=== PATIENT | female | born 1955 | race African-American/Black ===

== ENCOUNTER 2017-05-19 16:54 | Outpatient (CLI) | payer BC | END 2017-05-19 16:55 | disposition home or self-care (01) | LOC: BICMAMMO 16:54 | PROVIDERS: ATTEND Internal Medicine | DX: Z12.31 Encounter for screening mammogram for malignant neoplasm of breast (principal) | CPT/HCPCS: 77063; 77067 ==

== ENCOUNTER 2017-10-14 19:30 | Outpatient (CLI) | payer BC | END 2017-10-14 19:31 | disposition home or self-care (01) | LOC: SLEEPLAB 19:30 | PROVIDERS: ATTEND Family Medicine | DX: G47.33 Obstructive sleep apnea (adult) (pediatric) (principal); R53.83 Other fatigue; E66.9 Obesity, unspecified; G47.00 Insomnia, unspecified; F32.9 Major depressive disorder, single episode, unspecified; E11.9 Type 2 diabetes mellitus without complications; I10 Essential (primary) hypertension | CPT/HCPCS: 95811 ==

== ENCOUNTER 2017-10-26 16:14 | Outpatient (CLI) | payer BC ==
--- NOTE | 2017-10-26 13:16 | RAD ---
TWO VIEWS OF THE CHEST: COMPARISON: None. HISTORY: Dyspnea. FINDINGS: Two views of the chest show normal sized cardiomediastinal silhouette. There is no evidence of consol idation, mass, or pleural effusion. Degenerative changes are seen in the spine. IMPRESSION: No evidence of acute cardiopulmonary disease. POS: [facility]
== END 2017-10-26 16:15 | disposition home or self-care (01) ==
LOC: RAD 16:14
PROVIDERS: ATTEND Internal Medicine Pulmonary Disease
DX: R06.00 Dyspnea, unspecified (principal)
CPT/HCPCS: 71046

== ENCOUNTER 2017-11-03 20:30 | Outpatient (CLI) | payer BC | END 2017-11-03 20:31 | disposition home or self-care (01) | LOC: SLEEPLAB 20:30 | PROVIDERS: ATTEND Family Medicine | DX: G47.33 Obstructive sleep apnea (adult) (pediatric) (principal); R53.83 Other fatigue; E66.9 Obesity, unspecified; F32.9 Major depressive disorder, single episode, unspecified; G47.00 Insomnia, unspecified; I10 Essential (primary) hypertension; E11.9 Type 2 diabetes mellitus without complications; Z68.36 Body mass index [BMI] 36.0-36.9, adult | CPT/HCPCS: 95811 ==

== ENCOUNTER 2018-05-03 08:35 | Outpatient (CLI) | payer BC ==
--- NOTE | 2018-05-03 11:50 | CT ---
CT SOFT TISSUE NECK CONTRAST ENHANCED: HISTORY: A 62-year-old with a history of neck mass/lump. TECHNIQUE: Contrast enhanced CT images of the soft tissue neck obtained. FINDINGS: CT images demonstrate the frontal, ethmoid, maxillary, and sphenoid sinuses to be well aerated. No evidence of antral or extra-orbital mass is seen. The parotid glands are unremarkable. No definite evidence of submandibular masses seen. The thyroid gland is unremarkable. Left supraclavicular surgical clips are in place. IMPRESSION: Post surgical changes. No definite evidence of soft tissue neck abnormality seen. POS: [facility]
== END 2018-05-03 08:36 | disposition home or self-care (01) ==
LOC: SCSCT 08:35
PROVIDERS: ATTEND Family Medicine
DX: R22.1 Localized swelling, mass and lump, neck (principal); Z98.890 Other specified postprocedural states
CPT/HCPCS: 70491

== ENCOUNTER 2019-02-13 11:42 | Outpatient (CLI) | payer BC ==
--- NOTE | 2019-02-13 15:47 | MMO ---
Bilateral MAMMO Bilat Screen [facility]. CLINICAL HISTORY: Patient is 63 years old and is seen for screening. The patient has no family history of breast cancer. The patient has no personal history of cancer. The patient has a history of left Excisional Biopsy - benign. VIEWS: The views performed were: bilateral craniocaudal with tomosynthesis and bilateral mediolateral oblique with tomosynthesis. FILMS COMPARED: The present examination has been compared to a prior imaging study performed at [facility] on 05/19/2017. This study has been interpreted with the assistance of computer-aided detection. MAMMOGRAM FINDINGS: There are scattered fibroglandular densities. Benign calcifications are noted bilaterally. There are no suspicious masses, suspicious calcifications, or new areas of architectural distortion. IMPRESSION: THERE IS NO MAMMOGRAPHIC EVIDENCE OF MALIGNANCY. A ROUTINE FOLLOW-UP MAMMOGRAM IN 1 YEAR IS RECOMMENDED. THE RESULTS OF THIS EXAM WERE SENT TO THE PATIENT. ACR BI-RADS Category 2 - Benign finding MAMMOGRAPHY NOTE: 1. A negative mammogram report should not delay a biopsy if a dominant of clinically suspicious mass is present. 2. Approximately 10% to 15% of breast cancers are not detected by mammography. 3. Adenosis and dense breasts may obscure an underlying neoplasm. Reported by: LYN HUANG MD Electonically Signed: [id number]
== END 2019-02-13 11:43 | disposition home or self-care (01) ==
LOC: BICMAMMO 11:42
PROVIDERS: ATTEND Family Medicine
DX: Z12.31 Encounter for screening mammogram for malignant neoplasm of breast (principal)
CPT/HCPCS: 77063; 77067

== ENCOUNTER 2020-02-21 12:54 | Outpatient (CLI) | payer BC ==
--- NOTE | 2020-02-21 14:12 | MMO ---
Bilateral MAMMO Bilat Screen [facility]. CLINICAL HISTORY: Patient is 64 years old and is seen for screening. The patient has no family history of breast cancer. The patient has no personal history of cancer. The patient has a history of left Excisional Biopsy - benign. VIEWS: The views performed were: bilateral craniocaudal with tomosynthesis and bilateral mediolateral oblique with tomosynthesis. FILMS COMPARED: The present examination has been compared to prior imaging studies performed at [facility] on 05/19/2017 and 02/13/2019. This study has been interpreted with the assistance of computer-aided detection. MAMMOGRAM FINDINGS: There are scattered fibroglandular densities. Benign calcifications are noted bilaterally. There are no suspicious masses, suspicious calcifications, or new areas of architectural distortion. IMPRESSION: THERE IS NO MAMMOGRAPHIC EVIDENCE OF MALIGNANCY. A ROUTINE FOLLOW-UP MAMMOGRAM IN 1 YEAR IS RECOMMENDED. THE RESULTS OF THIS EXAM WERE SENT TO THE PATIENT. ACR BI-RADS Category 2 - Benign finding MAMMOGRAPHY NOTE: 1. A negative mammogram report should not delay a biopsy if a dominant of clinically suspicious mass is present. 2. Approximately 10% to 15% of breast cancers are not detected by mammography. 3. Adenosis and dense breasts may obscure an underlying neoplasm. Reported by: LYN HUANG MD Electonically Signed: [id number]
== END 2020-02-21 12:55 | disposition home or self-care (01) ==
LOC: BICMAMMO 12:54
PROVIDERS: ATTEND Family Medicine
DX: Z12.13 Encounter for screening for malignant neoplasm of small intestine (principal); Z91.89 Other specified personal risk factors, not elsewhere classified
CPT/HCPCS: 77063; 77067

== ENCOUNTER 2021-02-11 11:05 | Outpatient (CLI) | payer BC ==
[~2021-02-11 11:05] MED LIST: Iopamidol-370 76% 500 ML 1 ML ONE
== END 2021-02-11 11:06 | disposition home or self-care (01) ==
LOC: BICCT 11:05
PROVIDERS: ATTEND Family Medicine
DX: R10.30 Lower abdominal pain, unspecified (principal); K57.32 Diverticulitis of large intestine without perforation or abscess without bleeding; K44.9 Diaphragmatic hernia without obstruction or gangrene; I70.0 Atherosclerosis of aorta; I70.8 Atherosclerosis of other arteries; Z90.710 Acquired absence of both cervix and uterus
CPT/HCPCS: 74177; 82565; Q9967

== ENCOUNTER 2021-06-02 12:28 | Outpatient (CLI) | payer BC | END 2021-06-02 12:29 | disposition home or self-care (01) | LOC: BICMAMMO 12:28 | PROVIDERS: ATTEND Family Medicine | DX: Z12.31 Encounter for screening mammogram for malignant neoplasm of breast (principal); Z91.89 Other specified personal risk factors, not elsewhere classified | CPT/HCPCS: 77063; 77067 ==